=== PATIENT | female | born 1960 | race Two or more races ===

== ENCOUNTER 2021-04-04 09:41 | Inpatient (IN) | payer BC, OTHER ==
[~2021-04-04] VITALS: Ht 160 cm; Wt 69.1 kg
[2021-04-04] MEDS ORDERED: ONDANSETRON HCL 4 MG/2 ML VIAL IV ONE (11:15)
[2021-04-04] MEDS ORDERED: SODIUM CHLORIDE 0.9% 1,000 ML IV ONE (11:15)
[2021-04-04] MEDS ORDERED: MORPHINE SULFATE 4 MG/ML SYR/VIAL IV ONE (11:15)
[2021-04-04 11:59] LABS: Alanine Aminotransferase 222 U/L (13-56); Albumin 2.5 g/dL (3.4-5.0); Anion Gap 25 (5-15); Blood Urea Nitrogen 24 mg/dL (7-18); Calcium 9.8 mg/dL (8.5-10.1); Chloride 106 mmol/L (98-107); Glucose 231 mg/dL (74-106); Lipase 428 U/L (73-393); Magnesium 2.3 mg/dL (1.6-2.6); Potassium 3.1 mmol/L (3.5-5.1); Sodium 137 mmol/L (136-145)
[2021-04-04 12:00] LABS: Basophils # (auto) 0 10 ^3/uL (0-0.2); Basophils % (auto) 0.2 % (0.0-2.0); Eosinophils # (auto) 0.1 10 ^3/uL (0-0.8); Hematocrit 38.1 % (36.0-46.0); Hemoglobin 11.6 g/dL (12.2-16.2); Lymphocytes # (auto) 0.4 10 ^3/uL (0.4-5.4); Lymphocytes % (auto) 3.3 % (10.0-50.0); Mean Corpuscular Hemoglobin 24.5 pg (28.0-32.0); Mean Corpuscular Hgb Conc. 30.4 g/dL (32.0-36.0); Mean Corpuscular Volume 80.7 fL (80.0-100.0); Monocytes % (auto) 8.7 % (0.0-12.0); Neutrophils # (auto) 9.4 10 ^3/uL (1.6-8.6); Neutrophils % (auto) 86.8 % (37.0-80.0); Nucleated Red Blood Cells % 0.1 %; Red Blood Cells 4.72 10^6/uL (4.0-5.20); Red Cell Distribution Width 18.4 % (11.8-14.3); White Blood Cell 10.9 10^3/uL (4.4-10.8)
[2021-04-04 12:13] LABS: Alkaline Phosphatase 1026 U/L (45-117); Aspartate Aminotransferase 215 U/L (15-37); BUN/Creatinine Ratio 31.6; Bilirubin, Total 7.8 mg/dL (0.2-1.0); GFR African American 99 mL/min; GFR Non-African American 82 mL/min; Total Protein 6.8 g/dL (6.4-8.2)
[2021-04-04 12:16] LABS: Urine Bacteria NONE SEEN /hpf (None Seen); Urine Blood Negative /uL (Negative); Urine Hyaline Cast FEW /lpf (0 - 2); Urine Specific Gravity 1.019 (1.001-1.035); Urine WBC 3 /hpf (0 - 5)
[2021-04-04 12:33] LABS: Carbon Dioxide 6 mmol/L (21-32)
[2021-04-04] MEDS ORDERED: IOHEXOL 300 MG/ML 100ML BOTTLE IJ ONE (12:42)
[2021-04-04] MEDS ORDERED: SOD CHL 0.9%/ KCL 40MEQ 1,000 ML IV ONE (13:15)
[2021-04-04] MEDS ORDERED: LACTATED RINGER'S 1,000 ML IV ONE (13:15)
[2021-04-04] MEDS ORDERED: NITROGLYCERIN 0.4 MG SL TAB SL PRN (15:45)
[2021-04-04] MEDS ORDERED: DEXTROSE (50%) 50ML SYRG IV PRN (15:45)
[2021-04-04] MEDS ORDERED: ONDANSETRON HCL 4 MG/2 ML VIAL IV PRN (15:45)
[2021-04-04] MEDS ORDERED: POTASSIUM CHLORIDE 20 MEQ in LACTATED RINGER'S 1,000 ML IV SCH (15:45)
[2021-04-04] MEDS ORDERED: MORPHINE SULFATE INJECTION 2 MG/ML SYRG IV PRN (15:45)
[2021-04-04] MEDS ORDERED: ENOXAPARIN SOD 40 MG/0.4 ML SYRINGE SC ONE (15:45)
[2021-04-04] MEDS: InsuLIN REG 1unit/0.01ml Soln (100units/ml) SC SCH ×3 (16:46→23:04)
[2021-04-04] MEDS: ACCU-CHEK COMFORT CURVE STRIP VI SCH ×3 (16:48→23:01)
[2021-04-04 19:29] VITALS: BP 122/80
[2021-04-04] MEDS ORDERED: EMPA1TAB3 PO (19:53)
[2021-04-04 22:00] VITALS: BP 95/63
[2021-04-04] MEDS: MORPHINE SULFATE INJECTION 2 MG/ML SYRG IV PRN (23:01)
[2021-04-04] MEDS: metroNIDAZOLE 500MG/100ML 100 ML IV SCH (23:01)
[2021-04-05] MEDS: ACCU-CHEK COMFORT CURVE STRIP VI SCH ×6 (04:00→23:00)
[2021-04-05] MEDS: InsuLIN REG 1unit/0.01ml Soln (100units/ml) SC SCH ×6 (04:00→23:00)
[2021-04-05 05:00] VITALS: BP 103/56
[2021-04-05] MEDS: metroNIDAZOLE 500MG/100ML 100 ML IV SCH (05:24)
[2021-04-05 06:57] LABS: Basophils # (auto) 0 10 ^3/uL (0-0.2); Basophils % (auto) 0.6 % (0.0-2.0); Eosinophils # (auto) 0 10 ^3/uL (0-0.8); Hemoglobin 10.8 g/dL (12.2-16.2); Lymphocytes # (auto) 0.2 10 ^3/uL (0.4-5.4); White Blood Cell 7.8 10^3/uL (4.4-10.8)
[2021-04-05 06:59] LABS: Eosinophils % (auto) 0.6 % (0.0-7.0); Hematocrit 33.8 % (36.0-46.0); Lymphocytes % (auto) 2.6 % (10.0-50.0); Mean Corpuscular Hemoglobin 25.3 pg (28.0-32.0); Mean Corpuscular Hgb Conc. 32.1 g/dL (32.0-36.0); Mean Corpuscular Volume 78.9 fL (80.0-100.0); Monocytes # (auto) 0.6 10 ^3/uL (0-1.3); Monocytes % (auto) 8.3 % (0.0-12.0); Neutrophils # (auto) 6.9 10 ^3/uL (1.6-8.6); Neutrophils % (auto) 87.9 % (37.0-80.0); Red Blood Cells 4.28 10^6/uL (4.0-5.20); Red Cell Distribution Width 18.1 % (11.8-14.3)
[2021-04-05 07:21] LABS: Albumin 2.1 g/dL (3.4-5.0); BUN/Creatinine Ratio 28.8; Bilirubin, Total 8.8 mg/dL (0.2-1.0); Calcium 9.6 mg/dL (8.5-10.1); Total Protein 5.7 g/dL (6.4-8.2)
[2021-04-05 08:13] LABS: Potassium 2.2 mmol/L (3.5-5.1)
[2021-04-05 08:36] VITALS: BP 131/74
[2021-04-05] MEDS ORDERED: POTASSIUM CHLORIDE 60 MEQ, LIDOCAINE 1% (LOCAL ANESTH.) 6 ML in SODIUM CHL 0.9% 500 ML IV ONE (09:45)
[2021-04-05] MEDS: PANTOPRAZOLE 40 MG/10 ML VIAL INJ IV SCH (09:56)
[2021-04-05] MEDS: MORPHINE SULFATE INJECTION 2 MG/ML SYRG IV PRN (09:57)
[2021-04-05] MEDS ORDERED: PIPERACILLIN-TAZOB 3.375GM 100 ML IV ONE (12:15)
[2021-04-05] MEDS ORDERED: POTASSIUM CHL 20 Meq TABLET PO ONE (12:15)
[2021-04-05 12:56] VITALS: BP 101/54
[2021-04-05 16:40] VITALS: BP 108/61
[2021-04-05] MEDS: POTASSIUM CHLORIDE 20 MEQ in LACTATED RINGER'S 1,000 ML IV SCH (17:29)
[2021-04-05 22:00] VITALS: BP 116/68
[2021-04-05] MEDS: PIPERACILLIN-TAZOB 3.375GM 100 ML IV SCH (22:59)
[2021-04-06] MEDS: POTASSIUM CHLORIDE 20 MEQ in LACTATED RINGER'S 1,000 ML IV SCH (04:58)
[2021-04-06 05:00] VITALS: BP 121/69
[2021-04-06] MEDS: PIPERACILLIN-TAZOB 3.375GM 100 ML IV SCH ×3 (05:00→23:25)
[2021-04-06] MEDS: ACCU-CHEK COMFORT CURVE STRIP VI SCH ×6 (05:22→23:25)
[2021-04-06] MEDS: InsuLIN REG 1unit/0.01ml Soln (100units/ml) SC SCH ×6 (05:24→23:27)
[2021-04-06 07:20] LABS: Hemoglobin 9.4 g/dL (12.2-16.2); Mean Corpuscular Hemoglobin 25.3 pg (28.0-32.0); Red Blood Cells 3.71 10^6/uL (4.0-5.20)
[2021-04-06 07:23] LABS: Hematocrit 27.8 % (36.0-46.0); Mean Corpuscular Hgb Conc. 33.7 g/dL (32.0-36.0); Red Cell Distribution Width 17.8 % (11.8-14.3); White Blood Cell 8.1 10^3/uL (4.4-10.8)
[2021-04-06 07:26] LABS: Albumin 1.6 g/dL (3.4-5.0); Basophils % (manual) 0 (0.0-2.0); Blast Cells 0; Calcium 9.3 mg/dL (8.5-10.1); Eosinophils % (manual) 0 (0-7); Metamyelocytes % 0; Myelocytes % 0; Potassium 3.1 mmol/L (3.5-5.1); Promyelocytes % 0
[2021-04-06 07:41] LABS: BUN/Creatinine Ratio 44.4; Bilirubin, Total 9.6 mg/dL (0.2-1.0); Total Protein 4.9 g/dL (6.4-8.2)
[2021-04-06 08:09] LABS: Band Neutrophils % (manual) 7; Lymphocytes % (manual) 9 (10.0-50.0); Monocytes % (manual) 7 (0-12); Reactive Lymphocytes 1
[2021-04-06 09:14] VITALS: BP 126/67
[2021-04-06] MEDS: PANTOPRAZOLE 40 MG/10 ML VIAL INJ IV SCH (10:05)
[2021-04-06] MEDS ORDERED: LACTULOSE 20Gm/30ML SOLN PO ONE (11:30)
[2021-04-06 13:00] VITALS: BP 108/65
[2021-04-06] MEDS: POTASSIUM CHLORIDE 40 MEQ in SOD CHL 0.45% 1,000 ML IV SCH (15:47)
[2021-04-06 17:08] VITALS: BP 131/75
[2021-04-06 22:00] VITALS: BP 126/66
[2021-04-06] MEDS: LACTULOSE 20Gm/30ML SOLN PO SCH (23:25)
[2021-04-07] MEDS: POTASSIUM CHLORIDE 40 MEQ in SOD CHL 0.45% 1,000 ML IV SCH ×2 (04:30→21:42)
[2021-04-07 05:00] VITALS: BP 128/74
[2021-04-07 05:51] LABS: Mean Corpuscular Hemoglobin 25.1 pg (28.0-32.0); Mean Corpuscular Hgb Conc. 34.3 g/dL (32.0-36.0)
[2021-04-07 05:53] LABS: Hematocrit 27.5 % (36.0-46.0); Hemoglobin 9.4 g/dL (12.2-16.2); Mean Corpuscular Volume 73.3 fL (80.0-100.0); Red Blood Cells 3.75 10^6/uL (4.0-5.20); Red Cell Distribution Width 17.6 % (11.8-14.3); White Blood Cell 5.8 10^3/uL (4.4-10.8)
[2021-04-07 05:59] LABS: Albumin 1.5 g/dL (3.4-5.0); BUN/Creatinine Ratio 47.9; Calcium 8.8 mg/dL (8.5-10.1)
[2021-04-07 06:00] LABS: Basophils % (manual) 0 (0.0-2.0); Blast Cells 0; Metamyelocytes % 0; Myelocytes % 0; Promyelocytes % 0; Reactive Lymphocytes 0
[2021-04-07] MEDS: ACCU-CHEK COMFORT CURVE STRIP VI SCH ×6 (06:09→23:54)
[2021-04-07] MEDS: InsuLIN REG 1unit/0.01ml Soln (100units/ml) SC SCH ×6 (06:10→23:56)
[2021-04-07 06:15] LABS: Bilirubin, Total 12.2 mg/dL (0.2-1.0); Total Protein 4.5 g/dL (6.4-8.2)
[2021-04-07] MEDS: PIPERACILLIN-TAZOB 3.375GM 100 ML IV SCH ×3 (06:24→21:42)
[2021-04-07 06:31] LABS: Potassium 2.9 mmol/L (3.5-5.1)
[2021-04-07 07:03] LABS: Band Neutrophils % (manual) 6; Eosinophils % (manual) 2 (0-7); Lymphocytes % (manual) 7 (10.0-50.0); Monocytes % (manual) 7 (0-12)
[2021-04-07 09:00] VITALS: BP 136/82
[2021-04-07] MEDS: PANTOPRAZOLE 40 MG/10 ML VIAL INJ IV SCH (10:03)
[2021-04-07] MEDS: LACTULOSE 20Gm/30ML SOLN PO SCH ×2 (10:03→21:43)
[2021-04-07] MEDS ORDERED: POTASSIUM EFFERVESENT TAB 25 MEQ PO ONE (11:30)
[2021-04-07 12:43] VITALS: BP 129/70
[2021-04-07 16:37] VITALS: BP 136/73
[2021-04-07 22:00] VITALS: BP 138/76
[2021-04-08] MEDS: ACCU-CHEK COMFORT CURVE STRIP VI SCH ×4 (04:33→21:21)
[2021-04-08] MEDS: InsuLIN REG 1unit/0.01ml Soln (100units/ml) SC SCH ×4 (04:35→21:25)
[2021-04-08 05:00] VITALS: BP 125/59
[2021-04-08] MEDS: PIPERACILLIN-TAZOB 3.375GM 100 ML IV SCH ×3 (05:53→21:21)
[2021-04-08 06:14] LABS: White Blood Cell 4.9 10^3/uL (4.4-10.8)
[2021-04-08 06:16] LABS: Hematocrit 26.4 % (36.0-46.0); Mean Corpuscular Hemoglobin 24.8 pg (28.0-32.0); Mean Corpuscular Hgb Conc. 34.1 g/dL (32.0-36.0); Mean Corpuscular Volume 72.8 fL (80.0-100.0); Red Blood Cells 3.63 10^6/uL (4.0-5.20); Red Cell Distribution Width 17.9 % (11.8-14.3)
[2021-04-08 06:28] LABS: Basophils % (manual) 0 (0.0-2.0); Blast Cells 0; Eosinophils % (manual) 0 (0-7); Metamyelocytes % 0; Myelocytes % 0; Promyelocytes % 0; Reactive Lymphocytes 0
[2021-04-08 08:47] VITALS: BP 107/69
[2021-04-08 08:59] LABS: Band Neutrophils % (manual) 6; Lymphocytes % (manual) 12 (10.0-50.0); Monocytes % (manual) 20 (0-12)
[2021-04-08] MEDS: PANTOPRAZOLE 40 MG/10 ML VIAL INJ IV SCH (09:49)
[2021-04-08] MEDS: LACTULOSE 20Gm/30ML SOLN PO SCH ×2 (09:50→21:21)
[2021-04-08] MEDS ORDERED: DEXTROSE (50%) 50ML SYRG IV PRN (12:00)
[2021-04-08 12:09] LABS: Calcium 8.3 mg/dL (8.5-10.1); Potassium 3.3 mmol/L (3.5-5.1)
[2021-04-08 13:00] VITALS: BP 125/66
[2021-04-08] MEDS: POTASSIUM CHLORIDE 40 MEQ in SOD CHL 0.45% 1,000 ML IV SCH (15:59)
[2021-04-08 17:00] VITALS: BP 117/77
[2021-04-08 22:00] VITALS: BP 133/72
[2021-04-09 05:00] VITALS: BP 127/79
[2021-04-09] MEDS: ACCU-CHEK COMFORT CURVE STRIP VI SCH ×4 (05:17→21:48)
[2021-04-09] MEDS: InsuLIN REG 1unit/0.01ml Soln (100units/ml) SC SCH ×4 (05:18→21:51)
[2021-04-09] MEDS: PIPERACILLIN-TAZOB 3.375GM 100 ML IV SCH ×3 (05:19→21:48)
[2021-04-09 09:00] VITALS: BP 117/81
[2021-04-09] MEDS: PANTOPRAZOLE 40 MG/10 ML VIAL INJ IV SCH (09:25)
[2021-04-09] MEDS: LACTULOSE 20Gm/30ML SOLN PO SCH ×3 (09:25→21:48)
[2021-04-09] MEDS: POTASSIUM CHLORIDE 40 MEQ in SOD CHL 0.45% 1,000 ML IV SCH (09:25)
[2021-04-09 13:00] VITALS: BP 116/80
[2021-04-09 16:41] VITALS: BP 129/77
[2021-04-09 22:00] VITALS: BP 100/47
[2021-04-10] MEDS: POTASSIUM CHLORIDE 40 MEQ in SOD CHL 0.45% 1,000 ML IV SCH ×2 (01:36→17:30)
[2021-04-10 05:00] VITALS: BP 150/82
[2021-04-10] MEDS: PIPERACILLIN-TAZOB 3.375GM 100 ML IV SCH ×2 (06:16→14:28)
[2021-04-10] MEDS: ACCU-CHEK COMFORT CURVE STRIP VI SCH ×3 (06:17→16:28)
[2021-04-10] MEDS: InsuLIN REG 1unit/0.01ml Soln (100units/ml) SC SCH ×3 (06:19→16:28)
[2021-04-10 07:16] LABS: Hematocrit 23.7 % (36.0-46.0); Hemoglobin 8.1 g/dL (12.2-16.2); Mean Corpuscular Hemoglobin 25.2 pg (28.0-32.0); Mean Corpuscular Hgb Conc. 34.1 g/dL (32.0-36.0); Red Blood Cells 3.21 10^6/uL (4.0-5.20); Red Cell Distribution Width 18.1 % (11.8-14.3); White Blood Cell 5.5 10^3/uL (4.4-10.8)
[2021-04-10 07:18] LABS: Basophils % (manual) 0 (0.0-2.0); Blast Cells 0; Promyelocytes % 0; Reactive Lymphocytes 0
[2021-04-10 07:27] LABS: Albumin 1.5 g/dL (3.4-5.0); Calcium 8.1 mg/dL (8.5-10.1); Potassium 3.5 mmol/L (3.5-5.1)
[2021-04-10 07:44] LABS: BUN/Creatinine Ratio 10.4; Bilirubin, Total 8.8 mg/dL (0.2-1.0); Total Protein 4.9 g/dL (6.4-8.2)
[2021-04-10 09:00] VITALS: BP 99/66
[2021-04-10] MEDS: LACTULOSE 20Gm/30ML SOLN PO SCH (10:02)
[2021-04-10] MEDS: PANTOPRAZOLE 40 MG/10 ML VIAL INJ IV SCH (10:02)
[2021-04-10 10:32] LABS: Band Neutrophils % (manual) 7; Eosinophils % (manual) 2 (0-7); Lymphocytes % (manual) 23 (10.0-50.0); Metamyelocytes % 1; Monocytes % (manual) 7 (0-12); Myelocytes % 1
[2021-04-10 13:00] VITALS: BP 150/64
[2021-04-10 17:29] VITALS: BP 119/74
[2021-04-11] MEDS ORDERED: PANTOPRAZOLE 40 MG TAB PO SCH (10:00)
== END 2021-04-10 18:01 | disposition left against medical advice (07) | DRG 871 ==
LOC: EDBD 09:41 → ER 09:41 → TELE 15:35 → TELE-EAST 17:55 → TELE-CENTR 04-06 21:51
PROVIDERS: ADMIT Nurse Practitioner Acute Care; ATTEND Internal Medicine
DX: A41.9 Sepsis, unspecified organism (principal); E43 Unspecified severe protein-calorie malnutrition; K83.1 Obstruction of bile duct; C25.9 Malignant neoplasm of pancreas, unspecified; E11.9 Type 2 diabetes mellitus without complications; E87.6 Hypokalemia; G89.29 Other chronic pain; R79.89 Other specified abnormal findings of blood chemistry; Z53.29 Procedure and treatment not carried out because of patient's decision for other reasons; K72.90 Hepatic failure, unspecified without coma; Z20.822 Contact with and (suspected) exposure to COVID-19; Z79.84 Long term (current) use of oral hypoglycemic drugs; Z85.07 Personal history of malignant neoplasm of pancreas; Z88.8 Allergy status to other drugs, medicaments and biological substances; Z68.23 Body mass index [BMI] 23.0-23.9, adult
CPT/HCPCS: 36415; 36600; 74177; 76705; 80048; 80053; 81001; 82010; 82140; 82805; 82962; 83036; 83605; 83690; 83735; 84132; 84484; 85007; 85025; 85027; 87426; 93005; 96361; 96374; 96375; 97163; C9113; G0378; J1815; J2001; J2405; J2543; J3490